=== PATIENT | male | born 1980 | race Caucasian/White ===

== ENCOUNTER 2016-11-28 09:41 | Emergency (ER) | payer OTHER ==
[2016-11-28 09:46] VITALS: BP 140/73
[2016-11-28] MEDS ORDERED: BENZONATATE 100 MG CAPSULE PO ONE (11:13)
[2016-11-28] MEDS ORDERED: IBUPROFEN 600 MG TABLET PO ONE (11:13)
--- NOTE | 2016-11-28 11:15 | ER Document Report ---
ED ENT - General Mode of Arrival: Ambulatory Information source: Patient TRAVEL OUTSIDE OF THE [place] IN LAST 30 DAYS: No - HPI Patient complains to provider of: Throat problem Onset: Last week Onset/Duration: Persistent Quality of pain: Achy Severity: Mild Pain Level: 2 Location of pain: Throat Associated symptoms: Congestion, Cough, Fever, Sinus drainage, Sore throat Similar symptoms previously: No Recently seen / treated by doctor: No - General Chief Complaint: Sore Throat Stated Complaint: SORE THROAT/FEVER Time Seen by Provider: 11/28/16 11:13 - HPI Notes: Patient is a 36-year-old male with no past medical history who presents to the emergency room today complaining of sore throat, body aches, decreased voice, difficulty breathing, fever 100.3, cough is productive of greenish colored phlegm, reports symptoms have been going on for the past week, no sick contacts , no nausea vomiting or diarrhea (MAXIMINO BAIG) - Related Data Allergies/Adverse Reactions: No Known Allergies Allergy (Verified 11/28/16 09:44) Home Medications: Current Home Medications Sertraline HCl [Sertraline HCl] 100 mg PO DAILY 11/28/16 [History] Past Medical History - General Information source: Patient - Social History Smoking Status: Never Smoker Family History: Reviewed & Not Pertinent Patient has suicidal ideation: No Patient has homicidal ideation: No Renal/ Medical History: Denies: Hx Peritoneal Dialysis Review of Systems - Review of Systems Constitutional: See HPI EENT: See HPI Cardiovascular: No symptoms reported Respiratory: See HPI Gastrointestinal: No symptoms reported Genitourinary: No symptoms reported Male Genitourinary: No symptoms reported Musculoskeletal: See HPI Skin: No symptoms reported Hematologic/Lymphatic: No symptoms reported Neurological/Psychological: No symptoms reported -: Yes All other systems reviewed and negative Physical Exam - Vital signs Vitals: Temp Pulse Resp BP Pulse Ox 98.1 F 80 18 140/73 H 96 11/28/16 09:44 11/28/16 09:44 11/28/16 09:44 11/28/16 09:44 11/28/16 09:44 - Notes Notes: - General General appearance: Appears well, Alert In distress: None - HEENT Head: Normocephalic, Atraumatic Eyes: Normal Conjunctiva: Normal Extraocular movements intact: Yes Eyelashes: Normal Pupils: PERRL Pharynx: Posterior pharynx erythema, no tonsillar hypertrophy or exudate - Respiratory Respiratory status: No respiratory distress, lungs are clear to auscultation bilaterally - Cardiovascular Rhythm: Regular - Abdominal Inspection: Normal - Back Back: Normal - Extremities General upper extremity: Normal inspection General lower extremity: Normal inspection - Neurological Neuro grossly intact: Yes Orientation: AAOx4 [place] Coma Scale Eye Opening: Spontaneous [place] Coma Scale Verbal: Oriented [place] Coma Scale Motor: Obeys Commands [place] Coma Scale Total: 15 - Psychological Associated symptoms: Normal affect, Normal mood - Skin Skin Temperature: Warm Skin Moisture: Dry Skin Color: Normal (MAXIMINO BAIG) Course - Diagnostic Test Radiology reviewed: Image reviewed, Reports reviewed - Re-evaluation Re-evalutation: 11/28/16 12:12 Imaging findings were discussed with patient at bedside, symptoms are consistent with viral upper respiratory illness, patient was discharged with instructions for follow-up and advised to return if symptoms worsen, patient acknowledges understanding and agreement with this plan (MAXIMINO BAIG) - Vital Signs Vital signs: Temp Pulse Resp BP Pulse Ox 98.1 F 80 18 140/73 H 96 11/28/16 09:44 11/28/16 09:44 11/28/16 11:05 11/28/16 09:44 11/28/16 09:44 Discharge - Discharge Clinical Impression: Viral upper respiratory illness Condition: Stable Disposition: HOME, SELF-CARE Instructions: Upper Respiratory Illness ([facility]), Viral Syndrome ([facility]), Acetaminophen Additional Instructions: Follow up with your primary care provider in one to 2 days. Return to the emergency room immediately if symptoms worsen or any additional concerns. Prescriptions: Benzonatate [Tessalon Perle 100 mg Capsule] 100 mg PO Q8HP PRN #40 cap PRN Reason: Forms: Return to Work
--- NOTE | 2016-11-28 11:50 | RADIOLOGY REPORT (SQ) ---
EXAM DESCRIPTION: CHEST PA/LAT COMPLETED DATE/TIME: 11/28/2016 11:40 am REASON FOR STUDY: cough COMPARISON: None. TECHNIQUE: Frontal and lateral radiographic views of the chest acquired. NUMBER OF VIEWS: Two view. LIMITATIONS: Shallow inspiration. FINDINGS: LUNGS AND PLEURA: No opacities, masses or pneumothorax. No pleural effusion. MEDIASTINUM AND HILAR STRUCTURES: No masses or contour abnormalities. HEART AND VASCULAR STRUCTURES: Heart normal size. No evidence for failure. BONES: No acute findings. HARDWARE: None in the chest. OTHER: No other significant finding. IMPRESSION: NO SIGNIFICANT RADIOGRAPHIC FINDING IN THE CHEST. TECHNICAL DOCUMENTATION: JOB ID: [id number] [employer]- All Rights Reserved
== END 2016-11-28 12:10 | disposition home or self-care (01) ==
LOC: ER 09:41
DX: J06.9 Acute upper respiratory infection, unspecified (principal); B97.89 Other viral agents as the cause of diseases classified elsewhere; R05 Cough; R50.9 Fever, unspecified; J34.89 Other specified disorders of nose and nasal sinuses; R06.00 Dyspnea, unspecified
CPT/HCPCS: 71020; 87070; 87880; 99283

== ENCOUNTER 2016-12-05 11:11 | Emergency (ER) | payer OTHER ==
[2016-12-05 11:28] VITALS: BP 130/82
--- NOTE | 2016-12-05 12:54 | ER Document Report ---
ED General - General Chief Complaint: Skin Problem Stated Complaint: KNEE PAIN Time Seen by Provider: 12/05/16 12:25 Notes: Patient is a 36-year-old male who comes the ED complaining of a pustular rash to his legs bilaterally 2 days. Patient states that he did have a poison keyla exacerbation to his legs about 1.5 weeks ago. He used [id number] meds at the time and the poison keyla rash appeared to have gone away, but he was scratching them constantly. Pt states that he did [place]. He is still eating and drinking without any problems. He does not take any medications by mouth. No known allergies. Denies any insect/snake bite. Denies any fever, URI, sore throat, trouble swallowing, dyspnea, shortness of breath, cough, wheeze, abdominal pain, nausea/vomiting, dysuria, muscle weakness. TRAVEL OUTSIDE OF THE [place] IN LAST 30 DAYS: No - Related Data Allergies/Adverse Reactions: No Known Allergies Allergy (Verified 12/05/16 11:23) Past Medical History - Social History Smoking Status: Never Smoker Family History: Reviewed & Not Pertinent Patient has suicidal ideation: No Patient has homicidal ideation: No Renal/ Medical History: Denies: Hx Peritoneal Dialysis - Immunizations Hx Diphtheria, Pertussis, Tetanus Vaccination: Yes Review of Systems - Review of Systems Notes: REVIEW OF SYSTEMS: CONSTITUTIONAL : Denies fever, chills, or sweats. Denies recent illness. EENT: Denies eye, ear, throat, or mouth pain or symptoms. Denies nasal or sinus congestion or discharge. Denies throat, tongue, or mouth swelling or difficulty swallowing. CARDIOVASCULAR: Denies chest pain. Denies palpitations or racing or irregular heart beat. Denies ankle edema. RESPIRATORY: Denies cough, cold, or chest congestion. Denies shortness of breath, difficulty breathing, or wheezing. GASTROINTESTINAL: Denies abdominal pain or distention. Denies nausea, vomiting , or diarrhea. Denies blood in vomitus, stools, or per rectum. Denies black, tarry stools. Denies constipation. GENITOURINARY: Denies difficulty urinating, painful urination, burning, frequency, blood in urine, or discharge. MUSCULOSKELETAL: Denies back or neck pain or stiffness. Denies joint pain or swelling. SKIN: see hpi NEUROLOGICAL: Denies confusion or altered mental status. Denies passing out or loss of consciousness. Denies dizziness or lightheadedness. Denies headache. Denies weakness or paralysis or loss of use of either side. Denies problems with gait or speech. Denies sensory loss, numbness, or tingling. Denies seizures. ALL OTHER SYSTEMS REVIEWED AND NEGATIVE. Dictation was performed using [employer] voice recognition software Physical Exam - Vital signs Vitals: Temp Pulse Resp BP Pulse Ox 98.0 F 68 16 130/82 H 100 12/05/16 11:24 12/05/16 11:24 12/05/16 11:24 12/05/16 11:24 12/05/16 11:24 Notes: PHYSICAL EXAMINATION: GENERAL: Well-appearing, well-nourished and in no acute distress. LUNGS: Breath sounds clear to auscultation bilaterally and equal. No wheezes rales or rhonchi. HEART: Regular rate and rhythm without murmurs, rubs, gallops. ABDOMEN: Soft, nontender, nondistended abdomen. No guarding, no rebound. No masses appreciated. Normal bowel sounds present. No CVA tenderness bilaterally. Musculoskeletal: FROM to passive/active to LE's b/l. Strength 5+/5. Extremities: No cyanosis, clubbing, or edema b/l. Peripheral pulses 2+. Capillary refill less than 3 seconds. NEUROLOGICAL: Normal gait. Normal sensory, motor exams PSYCH: Normal mood, normal affect. SKIN: multiple areas of (0.1cm-1cm) maculopapular lesions, some with purulent discharge, pinpoint abscesses. + tenderness to the larger lesions. No ecchymosis, streaks, or large abscesses. No proximal lymphadenopathy. Course - Re-evaluation Re-evalutation: 12/05/16 13:09 Patient is a 36-year-old afebrile, well-hydrated, male presents to the ED with multiple small abscesses to his LE's b/l. No I&D is warranted at this time. I was able to express pustular material from several of the lesions and was able to obtain a wound culture which is now pending. Vitals are stable. PE otherwise unremarkable. Sepsis/SIRS criteria not met. No signs of tracking. We will treat conservatively for now with outpatient therapy. I will give him clindamycin 300 mg 3 times daily for 10 days. He is to monitor for any worsening symptoms as reviewed in the d/c. Recheck with his PCM in 2-3 days. Return to the ED with worsening symptoms. Pt in agreement. 12/05/16 13:14 - Vital Signs Vital signs: Temp Pulse Resp BP Pulse Ox 98.0 F 68 16 130/82 H 100 12/05/16 11:24 12/05/16 11:24 12/05/16 11:24 12/05/16 11:24 12/05/16 11:24 Discharge - Discharge Clinical Impression: Abscess Condition: Stable Disposition: HOME, SELF-CARE Instructions: Abscess ([facility]), MRSA Cellulitis ([facility]) Additional Instructions: Abscess You have an abscess (boil). This a pus-forming infection, usually due to staph. Some boils may be left to drain on their own, but most require lancing. From the time the tender lump first appears, it may be three or four days before the abscess is ready to aicha. Local heat and rest help at this stage of treatment. An antibiotic may prevent spread of the infection. Once the abscess is opened, packing may be placed into it. This is done so pus is not sealed inside by premature closure of the cavity. The packing will be removed at your follow-up visit or you may be advised to remove it yourself at home. Sometimes this packing must be replaced a few times during healing. The wound will heal with surprisingly little scar. Depending on the size and location of an abscess, healing can take one to four weeks. You may shower and wash the area around the incision site two or three times a day. Antibiotics may be prescribed, but are usually not necessary after an abscess has been drained. If you develop fever, chilling, worsening pain, or increasing swelling in the area, call the doctor or return immediately. Take medications as directed Keep the skin clean Tylenol/ibuprofen as needed Epsom salt soaks may help Recheck with your PCM in 2-3 days. Return to the ED for any red streaks, fever, worsening pain/discharge, chest pains, shortness of breath. Prescriptions: Clindamycin HCl [Cleocin 300 mg Capsule] 300 mg PO TID #30 capsule Forms: Elevated Blood Pressure
== END 2016-12-05 13:20 | disposition home or self-care (01) ==
LOC: ER 11:11
DX: L02.416 Cutaneous abscess of left lower limb (principal); L02.415 Cutaneous abscess of right lower limb; Z86.14 Personal history of Methicillin resistant Staphylococcus aureus infection
CPT/HCPCS: 87070; 87075; 87077; 87186; 87205; 99283

== ENCOUNTER 2017-10-13 12:07 | Emergency (ER) | payer OTHER ==
[2017-10-13] MEDS ORDERED: SULFAMETHOXAZOLE/TRIMETHOPRIM 800-160 MG TABLET PO ONE (14:13)
[2017-10-13] MEDS ORDERED: IBUPROFEN 800 MG TABLET PO ONE (14:13)
[2017-10-13] MEDS ORDERED: CEPHALEXIN 500 MG CAPSULE PO ONE (14:13)
--- NOTE | 2017-10-13 14:14 | ER Document Report ---
ED Skin Rash/Insect Bite/Abscs - General Chief Complaint: Insect Bite Stated Complaint: POSSIBLE BUG BITE Time Seen by Provider: 10/13/17 13:24 Mode of Arrival: Ambulatory Information source: Patient Notes: 37-year-old male presents to ED for right thigh pain swelling redness and warmth. He states he gave himself a shot of testosterone in the right lateral thigh 3 days ago. Since then it is been increasing pain harness and swelling. Patient states he gave himself these years ago and did not have any problems but a friend giving this dose and he was not sure what happened. TRAVEL OUTSIDE OF THE [place] IN LAST 30 DAYS: No - HPI Patient complains to provider of: Tender/swollen area Onset: Other - 3 days ago Onset/Duration: Gradual Quality of pain: Burning, Pressure, Throbbing Severity: Moderate Pain Level: 4 Skin Character: Erythema, Swelling, Other. No: Abscess Skin Temperature: Warm Quality of rash: Painful Identify cause: Yes - Injection of testosterone to the area Exacerbated by: Movement, Walking Relieved by: Denies Similar symptoms previously: No Recently seen / treated by doctor: No - Related Data Allergies/Adverse Reactions: No Known Allergies Allergy (Verified 02/26/17 21:49) Past Medical History - General Information source: Patient - Social History Smoking Status: Never Smoker Cigarette use (# per day): No Chew tobacco use (# tins/day): No Smoking Education Provided: No Frequency of alcohol use: None Drug Abuse: None Lives with: Family Family History: Reviewed & Not Pertinent Patient has suicidal ideation: No Patient has homicidal ideation: No - Past Medical History Cardiac Medical History: Reports: None Pulmonary Medical History: Reports: None EENT Medical History: Reports: None Neurological Medical History: Reports: None Endocrine Medical History: Reports: None Renal/ Medical History: Reports: None Malignancy Medical History: Reports None GI Medical History: Reports: None Musculoskeltal Medical History: Reports Hx Musculoskeletal Trauma Skin Medical History: Reports None Psychiatric Medical History: Reports: None Traumatic Medical History: Reports: Hx Fractures - Thumb Infectious Medical History: Reports: None Past Surgical History: Reports: Hx Orthopedic Surgery - left knee, right thumb - Immunizations Hx Diphtheria, Pertussis, Tetanus Vaccination: Yes Review of Systems - Review of Systems Constitutional: No symptoms reported EENT: No symptoms reported Cardiovascular: No symptoms reported Respiratory: No symptoms reported Gastrointestinal: No symptoms reported Genitourinary: No symptoms reported Male Genitourinary: No symptoms reported Musculoskeletal: No symptoms reported Skin: Change in color Hematologic/Lymphatic: No symptoms reported Neurological/Psychological: No symptoms reported Physical Exam - Vital signs Vitals: Temp Pulse Resp BP Pulse Ox 98.0 F 103 H 20 120/82 96 10/13/17 12:16 10/13/17 12:16 10/13/17 12:16 10/13/17 12:16 10/13/17 12:16 Interpretation: Normal - General General appearance: Appears well, Alert - HEENT Head: Normocephalic, Atraumatic Eyes: Normal Pupils: PERRL - Respiratory Respiratory status: No respiratory distress Chest status: Nontender Breath sounds: Normal Chest palpation: Normal - Cardiovascular Rhythm: Regular Heart sounds: Normal auscultation Murmur: No - Abdominal Inspection: Normal Distension: No distension Bowel sounds: Normal Tenderness: Nontender Organomegaly: No organomegaly - Back Back: Normal, Nontender - Extremities General upper extremity: Normal inspection, Nontender, Normal color, Normal ROM , Normal temperature General lower extremity: Normal inspection, Nontender, Normal color, Normal ROM , Normal temperature, Normal weight bearing. No: Dominick's sign - Neurological Neuro grossly intact: Yes Cognition: Normal Orientation: AAOx4 [place] Coma Scale Eye Opening: Spontaneous [place] Coma Scale Verbal: Oriented [place] Coma Scale Motor: Obeys Commands [place] Coma Scale Total: 15 Speech: Normal Motor strength normal: LUE, RUE, LLE, RLE Sensory: Normal - Psychological Associated symptoms: Normal affect, Normal mood - Skin Skin Temperature: Warm Skin Moisture: Dry Skin Color: Normal Location of irregularity: Extremities - right thigh Irregularity with: Swelling, Tenderness, Warmth, Thickening, Inflammation, Other - Firm nonfluctuant Course - Re-evaluation Re-evalutation: 10/13/17 15:[address] lemus for this erythematous firm warm tender right lateral thigh from just below the hip to just above the knee. Patient had injected himself with testosterone that he received from his friend 3 days ago. There was no fluctuance noted. Dr. lemus used a ultrasound and did not see any definite abscess. Patient was started on Keflex and Bactrim and instructed to follow-up with his primary doctor. Patient verbalized understanding and agreement with plan of care - Vital Signs Vital signs: Temp Pulse Resp BP Pulse Ox 98.4 F 106 H 18 130/80 H 96 10/13/17 14:27 10/13/17 14:27 10/13/17 14:27 10/13/17 14:27 10/13/17 14:27 Discharge - Discharge Clinical Impression: Cellulitis of right thigh Condition: Stable Disposition: HOME, SELF-CARE Additional Instructions: CELLULITIS: You have an infection of your skin and underlying soft tissues called cellulitis. This is due to bacteria, which can enter through any break in the skin, or even through an irritated hair follicle. Untreated, cellulitis will usually worsen. Antibiotics are required. Usually, warm packs or warm soaks, and elevation of the infected area are recommended. You should start getting better within 24 to 36 hours. Most infections respond quickly to the right medication. Follow-up care is important, however, to check for abscess (boil) formation, unsuspected foreign body, or resistant infection. If you develop fever, chills, or if the area of infection is becoming rapidly more swollen or painful, call the doctor at once. TRIMETHOPRIM-SULFA: You have been given a prescription for trimethoprim-sulfa (TMS, Septra, Bactrim). This is a combination antibiotic of the sulfa class, often used for urinary tract infections, middle ear infections, bronchitis, shigella intestinal infection, and Pneumocystis pneumonia. TMS is usually well-tolerated. Occasional side effects include nausea and decreased appetite. Septra is not recommended for infants less than two months of age. Do not take this medication if you have experienced severe side effects or allergy to sulfa medicine. You should stop this medicine at once and contact your physician if you develop any rash, joint pain, shortness of breath, bruising, or jaundice ( yellow color in the skin), or if you develop any other new or unusual symptoms. Cephalexin The antibiotic you've been prescribed is a member of the cephalosporin class. This type of antibiotic covers a wide variety of infections, including those of the skin, lungs, and urinary tract. It's useful for staph infections. This antibiotic is slightly similar to the penicillin family. In rare cases , a person who is allergic to penicillin will also be allergic to this medication. If you have had a severe allergic reaction to penicillin, and have not taken this antibiotic since that time, notify your doctor. Antibiotics which cover many germs ("broad spectrum" antibiotics) are more likely to cause diarrhea or "yeast" infections. Women prone to vaginal yeast problems may suffer an attack after taking this antibiotic. In infants, oral thrush (white spots "stuck" on the cheek) or yeast diaper rash may result. See your doctor if these problems occur. Call at once if you develop itching, hives , shortness of breath, or lightheadedness. Acetaminophen Acetaminophen may be taken for pain relief or fever control. It's much safer than aspirin, offering a wider range of "safe" dosages. It is safe during . Some brand names are Tylenol, Panadol, Datril, Anacin 3, Tempra, and Liquiprin. Acetaminophen can be repeated every four hours. The following are maximum recommended dosages: WEIGHT Dose Drops Elixir Chewable( 80mg) (LBS.) drprs=droppers tsp=teaspoon 6 40 mg .4 ml (1/2) 6-11 80 mg .8 ml (full) 1/2 tsp 1 tab 12-16 120 mg 1 1/2 drprs 3/4 tsp 1 1/2 tabs 17-23 160 mg 2 drprs 1 tsp 2 tabs 24-30 240 mg 3 drprs 1 1/2 tsp 3 tabs 30-35 320 mg 2 tsp 4 tabs 36-41 360 mg 2 1/4 tsp 4 1 /2 tabs 42-47 400 mg 2 1/2 tsp 5 tabs 48-53 480 mg 3 tsp 6 tabs 54-59 520 mg 3 1/4 tsp 6 1 /2 tabs 60-64 560 mg 3 1/2 tsp 7 tabs 65-70 600 mg 3 3/4 tsp 7 1 /2 tabs 71-76 640 mg 4 tsp 8 tabs 77-82 720 mg 4 1/2 tsp 9 tabs 83-88 800 mg 5 tsp 10 tabs >89 pounds or adults 650 mg to 900 mg Acetaminophen can be repeated every four hours. Maximum daily dose not to exceed 4000 mg. These maximum recommended dosages are slightly higher than the dosages written on the product container, but these dosages are very safe and well below the toxic dosage for acetaminophen. Stay out of the sun and the suntan [place] for the next 7 days return to ED or primary doctor for any increasing redness increase in pain or elevated temperatures. FOLLOW-UP CARE: If you have been referred to a physician for follow-up care, call the physician s office for an appointment as you were instructed or within the next two days. If you experience worsening or a significant change in your symptoms, notify the physician immediately or return to the Emergency Department at any time for re-evaluation. Follow-up with your doctor or a primary care doctor in the next 3-5 days to ensure reduction of symptoms.. Prescriptions: Cephalexin Monohydrate [Keflex 500 mg Capsule] 500 mg PO Q6H 7 Days capsule Sulfamethoxazole/Trimethoprim [Septra-Ds 800-160 mg Tablet] 1 tab PO BID #14 tablet
[2017-10-13 14:28] VITALS: BP 130/80
== END 2017-10-13 14:30 | disposition home or self-care (01) ==
LOC: ER 12:07
DX: L03.115 Cellulitis of right lower limb (principal)
CPT/HCPCS: 99281

== ENCOUNTER 2018-01-19 14:22 | Emergency (ER) | payer OTHER ==
[2018-01-19 14:27] VITALS: BP 133/78
--- NOTE | 2018-01-19 14:33 | ER Document Report ---
HPI - HPI Patient complains to provider of: Injury to right shoulder Onset: Yesterday Onset/Duration: Sudden Pain Level: 4 Context: 37-year-old male was inclined bench pressing 350 pounds yesterday and felt a pop in his right shoulder and feels like something is elevated at the AC joint that is not elevated on the left-hand side. He wants to know if anything is wrong before he goes to the gym today. Past Medical History - General Information source: Patient - Social History Smoking Status: Never Smoker Frequency of alcohol use: None Drug Abuse: None Lives with: Family Family History: Reviewed & Not Pertinent Renal/ Medical History: Denies: Hx Peritoneal Dialysis Musculoskeletal Medical History: Reports Hx Musculoskeletal Trauma Traumatic Medical History: Reports: Hx Fractures - Thumb Past Surgical History: Reports: Hx Orthopedic Surgery - left knee, right thumb - Immunizations Hx Diphtheria, Pertussis, Tetanus Vaccination: Yes Vertical Provider Document - CONSTITUTIONAL Agree With Documented VS: Yes Exam Limitations: No Limitations - INFECTION CONTROL TRAVEL OUTSIDE OF THE [place] IN LAST 30 DAYS: No - MUSCULOSKELETAL/EXTREMETIES Musculoskeletal/Extremeties: Tender - At the right AC joint. It does seem mildly elevated compared to the left.. negative: FROM - Painful with right arm abduction he states that the pain is inside the joint - NEURO Level of Consciousness: Alert - DERM Integumentary: No Rash Course - Re-evaluation Re-evalutation: 01/19/18 15:07 X-rays negative per rad. Patient understands that this is a bony soft tissue injury that the bones are normal and that he should not over stress the joint and the rotator cuff until the pain goes away 01/19/18 15:09 - Vital Signs Vital signs: Temp Pulse Resp BP Pulse Ox 98.2 F 80 16 133/78 H 96 01/19/18 14:26 01/19/18 14:26 01/19/18 14:26 01/19/18 14:26 01/19/18 14:26 Discharge - Discharge Clinical Impression: Muscle strain Right shoulder injury Qualifiers: Encounter type: initial encounter Qualified Code(s): S49.91XA - Unspecified injury of right shoulder and upper arm, initial encounter Condition: Good Disposition: HOME, SELF-CARE Instructions: Acetaminophen, Ibuprofen (General) ([facility]), Muscle Strain ([facility]) Additional Instructions: warm nadiya Do not lift and strain the right shoulder joint until the pain goes away Return to the emergency room for worsening pain Referral to orthopedics if the pain persists Prescriptions: Ibuprofen [Motrin 400 mg Tablet] 400 mg PO Q6HP PRN #30 tablet PRN Reason: Referrals: MARCO GÓMEZ MD [ACTIVE STAFF] - Follow up as needed
--- NOTE | 2018-01-19 15:02 | RADIOLOGY REPORT (SQ) ---
EXAM DESCRIPTION: SHOULDER RIGHT 2 OR MORE VIEWS COMPLETED DATE/TIME: 01/19/2018 2:42 pm REASON FOR STUDY: Injury in the gym hurts at the AC joint COMPARISON: None. NUMBER OF VIEWS: Three views. TECHNIQUE: Internal rotation, external rotation, and Y view images acquired of the right shoulder. LIMITATIONS: None. FINDINGS: MINERALIZATION: Normal. BONES: No acute fracture or dislocation. No worrisome bone lesions. JOINTS: No dislocation. VISUALIZED LUNGS AND RIBS: No pneumothorax. No rib fracture. SOFT TISSUES: No radiopaque foreign body. OTHER: No other significant finding. IMPRESSION: NO RADIOGRAPHIC EVIDENCE OF ACUTE INJURY. TECHNICAL DOCUMENTATION: JOB ID: [id number] [place]-[id number] 2010 [employer]- All Rights Reserved Reading location - IP/workstation name: [email or web address]
== END 2018-01-19 15:24 | disposition home or self-care (01) ==
LOC: ER 14:22
DX: S46.911A Strain of unspecified muscle, fascia and tendon at shoulder and upper arm level, right arm, initial encounter (principal); X50.0XXA Overexertion from strenuous movement or load, initial encounter; Y93.B3 Activity, free weights; Y92.39 Other specified sports and athletic area as the place of occurrence of the external cause
CPT/HCPCS: 99283